=== PATIENT | female | born 1955 | race Caucasian/White ===

== ENCOUNTER 2017-01-19 04:52 | Observation (INO) | payer BC, OTHER ==
--- NOTE | ~2017-01-19 | US67 ---
[facility] A Service of [facility] RADIOLOGY TEXT RESULTS PATIENT: DIAMOND MOLINA LOCATION: [facility] [id number] : 54 UNIT #: [id number] AGE: [address]: Franko Jiménez MD SEX: F ORDER DR: [id number] [facility] [address] [facility]. [place], [place] [address] [id number] I MR#: [id number] #: [id number] NAME: DIAMOND MOLINA : 1955 SEX: F STUDY DATE/TIME: 01/20/2017 10:48 UNIT: [facility] ROOM: [facility] STUDY DESCRIPTION: US Gallbladder Attending Physician: Franko Jiménez M.D. Ordering Physician: Franko Jiménez M.D. Primary Care Physician: Suleiman Jasso M.D. MEDICAL IMAGING REPORT This report is preliminary unless electronic signature is present EXAM Gallbladder ultrasound date: 01/20/2017 HISTORY Abdominal pain for 4 days. Additional history of hypertension, hyperlipidemia. COMPARISON CT abdomen and pelvis with contrast 01/19/2017. FINDINGS Portions of the pancreas obscured by bowel gas, but the visualized portions the pancreas appear unremarkable. The liver demonstrates a mildly diffusely coarsened echotexture suggesting features of mild hepatic steatosis. However, no focal liver lesion is identified. No ascites. Color flow was documented within the intrahepatic segment of the IVC. Portal vein is patent. Liver size is within normal limits. Right kidney measures 11.2 cm in length without focal cortical lesion, shadowing stone or hydronephrosis. Common bile duct caliber is normal, 4 mm, and no intrahepatic biliary ductal dilation is seen. The gallbladder is free of shadowing stone, sludge, wall thickening or pericholecystic fluid. IMPRESSION 1. Normal sonographic appearance of the gallbladder. No biliary dilation. 2. Sonographic features suggestive of mild hepatic steatosis. Dictated by... Jessica Dorantes M.D. THIS IS AN ELECTRONICALLY VERIFIED REPORT [facility] A Service of [facility] RADIOLOGY TEXT RESULTS PATIENT: DIAMOND MOLINA LOCATION: [facility] [id number] : [birth year] UNIT #: [id number] AGE: [address]: Franko Jiménez MD SEX: F ORDER DR: Jessica Dorantes M.D. at 01/22/2017 7:14 AM Radha TD: 01/20/2017 13:21 JOB #: [id number] MEDICAL IMAGING REPORT Page 1 of 1 COPY
--- NOTE | ~2017-01-19 | OR ---
Unit #: [id number] #: [id number] Patient: DIAMOND MOLINA [id number] [address] [address] [id number] I MR#: [id number] NAME: DIAMOND MOLINA ROOM: 573 Date of Procedure: 01/20/2017 Admission Date: 01/19/2017 Surgeon: Chi Finch M.D. : 1955 Attending Physician: Franko Jiménez M.D. Primary Care Physician: Suleiman Jasso M.D. OPERATIVE REPORT PREOPERATIVE DIAGNOSES Epigastric pain radiating to the back along with nausea. PROCEDURES PERFORMED Upper gastrointestinal endoscopy. POSTOPERATIVE DIAGNOSES Completely normal examination except for a few small incidental hyperplastic polyps in the stomach. RECOMMENDATIONS Consider HIDA scan. This can be done as an outpatient or in the morning. In the meantime, the patient can be started on diet as tolerated. SEDATION USED MAC. DESCRIPTION OF PROCEDURE Following detailed explanation of the potential risks and complications of an upper endoscopy, namely perforation, bleeding, and complications related to sedation, the patient was brought to GI lab and laid in the left lateral decubitus position. Lubricated tip of the Olympus video upper endoscope was passed through the bite block into the proximal esophagus under direct vision. The entire esophageal mucosa was examined and appeared normal. Z-line was nicely demarcated, there being no esophagitis or hiatus hernia. The scope was then advanced into the gastric cavity and the latter was insufflated. Mucosa of the fundus, body, and antrum examined and the patient was noted to have few small sessile hyperplastic polyps scattered throughout the stomach. Otherwise, examination was normal. Pylorus was intubated with visualization of the normal duodenal bulb and second and third part of the duodenum. Upon withdrawal and retroflexion, incisura, cardia, and greater curve examined and no additional findings noted. The scope was then withdrawn in the distal esophagus. The entire esophageal mucosa was examined all the way up to pharynx. No additional findings noted. The patient tolerated the procedure without any postprocedure complications. Dictated by... Chi Finch M.D. Unit #: [id number] #: [id number] Patient: DIAMOND MOLINA NNEKA/jose de jesus TD: 02/04/2017 03:11 JOB #: [id number] OPERATIVE REPORT Page 1 of 1 X Chi iFnch MD PROCEDURE OPERATIVE NOTE
--- NOTE | ~2017-01-19 | EKG ---
PATIENT: DIAMOND MOLINA UNIT #: [id number] Ventricular Rate: 69 BPM Atrial Rate: 69 BPM P-R Interval: 156 ms QRS Duration: 116 ms Q-T Interval: 414 ms QTC Calculation(Bezet): 443 ms P [place]: 38 degrees Calculated R [place]: 62 degrees Calculated T [place]: 35 degrees Diagnosis Line: Normal sinus rhythm Diagnosis Line: Right bundle branch block Diagnosis Line: Abnormal ECG Diagnosis Line: When compared with ECG of 19-JAN-2017 08:52, Diagnosis Line: (unconfirmed) Diagnosis Line: No significant change was found Diagnosis Line: Confirmed by KEV LEIGH MD ([id number]) on 01/20/2017 Diagnosis Line: 10:58:40 PM INTERPRETING MD: LU DORMAN
--- NOTE | ~2017-01-19 | EKG ---
PATIENT: DIAMOND MOLINA UNIT #: [id number] Ventricular Rate: 90 BPM Atrial Rate: 90 BPM P-R Interval: 134 ms QRS Duration: 108 ms Q-T Interval: 388 ms QTC Calculation(Bezet): 474 ms P [place]: 84 degrees Calculated R [place]: 86 degrees Calculated T [place]: 54 degrees Diagnosis Line: Normal sinus rhythm Diagnosis Line: Right bundle branch block with repolarization Diagnosis Line: abnormality Diagnosis Line: Abnormal ECG Diagnosis Line: When compared with ECG of 13-MAY-2010 10:05, Diagnosis Line: Vent. rate has increased BY 32 BPM Diagnosis Line: Right bundle branch block is now Present Diagnosis Line: Confirmed by KEN CARR MD ([id number]) on 01/21/2017 Diagnosis Line: 10:20:29 AM INTERPRETING MD: LILLY DORMAN
--- NOTE | ~2017-01-19 | CT2 ---
[facility] A Service of [facility] RADIOLOGY TEXT RESULTS PATIENT: DIAMOND MOLINA LOCATION: [place] [address] : [birth year] UNIT #: [id number] AGE: [address]: Franko Jiménez MD SEX: F ORDER DR: [id number] [address] [address] [id number] E MR#: [id number] Acc #: [id number] NAME: DIAMOND MOLINA : 1955 SEX: F STUDY DATE/TIME: 01/19/2017 6:26 UNIT: SED ROOM: STUDY DESCRIPTION: CT Abd and Pelv W Cont Attending Physician: Seymour Pearce M.D. Ordering Physician: Seymour Pearce M.D. Primary Care Physician: Suleiman Jasso M.D. MEDICAL IMAGING REPORT This report is preliminary unless electronic signature is present. EXAM CT abdomen and pelvis with contrast HISTORY Epigastric pain and chest pain intermittently times 1 day. Prior hysterectomy and appendectomy. COMPARISON: CT abdomen and pelvis 08/08/[address] exam was performed with one or more of the following radiation dose reduction techniques: automatic exposure control, adjustment of mA and/or kV according to patient size, and iterative reconstruction. FINDINGS Axial images performed through the abdomen and pelvis following IV contrast. Multiplanar reconstructed images reviewed at a workstation. Abdomen: Lung bases unremarkable. Liver, spleen and gallbladder appear normal. Pancreas, kidneys and adrenal glands unremarkable. No free air or free fluid. The visualized GI tract appears normal. The retroperitoneum unremarkable except for mild atherosclerotic changes. Pelvis: Bladder normal. Uterus absent. Osseous structures unremarkable. IMPRESSION No acute intraabdominal or intrapelvic pathology identified. Dictated by... Gage Moreno M.D. THIS IS AN ELECTRONICALLY VERIFIED REPORT [facility] A Service of [facility] RADIOLOGY TEXT RESULTS PATIENT: DIAMOND MOLINA LOCATION: [place] [address] : [birth year] UNIT #: [id number] AGE: [address]: Franko Jiménez MD SEX: F ORDER DR: Gage Moreno M.D. at 01/19/2017 3:31 PM VADIM/francisco TD: 01/19/2017 08:29 JOB #: [id number] MEDICAL IMAGING REPORT Page 1 of 1
--- NOTE | ~2017-01-19 | EKG ---
PATIENT: DIAMOND MOLINA UNIT #: [id number] Ventricular Rate: 66 BPM Atrial Rate: 66 BPM P-R Interval: 142 ms QRS Duration: 114 ms Q-T Interval: 462 ms QTC Calculation(Bezet): 484 ms P [place]: 66 degrees Calculated R [place]: 56 degrees Calculated T [place]: 37 degrees Diagnosis Line: Normal sinus rhythm Diagnosis Line: Low voltage QRS Diagnosis Line: Right bundle branch block with repolarization Diagnosis Line: abnormality Diagnosis Line: Abnormal ECG Diagnosis Line: Diagnosis Line: Confirmed by KEN CARR MD ([id number]) on 01/21/2017 Diagnosis Line: 10:20:45 AM INTERPRETING MD: LILLY DORMAN
--- NOTE | ~2017-01-19 | HP ---
Unit #: [id number] #: [id number] Patient: DIAMOND MOLINA [id number] [place] [address] [facility]. [place], [place] [address] [id number] I MR#: [id number] NAME: DIAMOND MOLINA ROOM: 573 Age: 61 Sex: F Admission Date: 01/19/2017 : 1955 Attending Physician: Franko Jiménez M.D. Primary Care Physician: Suleiman Jasso M.D. HISTORY AND PHYSICAL HISTORY OF PRESENT ILLNESS This is a 61-year-old white female with known history of hypertension, hyperlipidemia, reported mitral valve prolapse. Had a normal stress test a few years back. Has had problems with, sounds like, dysphagia, esophageal strictures. Has had several scopes and is a patient of Dr. Darius michel at [facility]. Patient has even had Botox injection for pain. Patient went to the emergency room at [facility] with recurrent pain mostly in her mid epigastric area. She said it radiates through to the back between her shoulder blades. She did have some, besides mid epigastric, it radiated up into the midsternal chest a couple times. She said she has had about 3 episodes over the past 3 days. She said they lasted about 45 minutes to an hour. She gets just real weak and just does not feel well. She denies any acute nausea or vomiting, except she did have some nausea this morning. She denies any palpitations. No dizziness. No shortness of breath. No diaphoresis. She has had no fever or chills or cough. The patient was transferred over here to [facility] for further evaluation and management to evaluate and make sure there was nothing cardiac. Her initial cardiac enzymes were negative. EKG does not show anything acute. PAST MEDICAL HISTORY 1. Last EGD done at [facility] by Dr. Darius Lorenzo on 02/13/2016. Shows nonacid reflux. It was done for dysphagia, abdominal pain. It showed some mildly erythematous mucosa without bleeding in the gastric antrum. On 06/25/2016 she did receive Botox injection during an EGD. 2. Hypertension. 3. Hyperlipidemia. 4. History of mitral valve prolapse. 5. Gastroesophageal reflux disease. 6. Stress test about 5 years ago. According to the patient told it was normal. No cardiac cath in the past. 7. Rheumatoid arthritis, on Enbrel injections. PAST SURGICAL HISTORY 1. EGD and colonoscopies. EGD in the past showed esophagitis, gastric polyps, but her last EGD showed esophagus was normal, but she did have a Botox injection 06/2016 with trigger point injections. 2. Partial hysterectomy. 3. Tubal ligation. 4. Appendectomy. Unit #: [id number] #: [id number] Patient: DIAMOND MOLINA 5. Bilateral knee surgery. 6. Right elbow surgery. HOME MEDICATIONS (I will list them, but there are no dosages) 1. Lisinopril 1 tablet daily. 2. Lovastatin 1 tablet p.o. daily. 3. Prednisone, dosage and frequency unavailable. 4. Enbrel, dosage and frequency unavailable. 5. Carafate, dosage and frequency unavailable. 6. Lotronex, dosage and frequency unavailable. 7. Vitamin D. 8. Vitamin K. 9. Dexilant. ALLERGIES Plaquenil, Arava, celecoxib (Celebrex). SOCIAL HISTORY The patient lives with her . She is retired last year. She used to smoke but quit back in 1987. Has a social alcohol drink but nothing excessive. FAMILY HISTORY Her mother has hypertension. Her father with kidney cancer. REVIEW OF SYSTEMS CONSTITUTIONAL: Denies fevers or chills. No recent weight gain, weight loss. HEENT: Denies headache or dizziness. No visual or hearing changes. No lymphadenopathy, thyromegaly. No difficulty swallowing. CARDIOVASCULAR: Complains of epigastric/midsternal chest pain. Denies paroxysmal nocturnal dyspnea or orthopnea. GI: Had some nausea this morning. No vomiting, diarrhea. Upper abdominal pain. NEUROLOGIC: No focal weakness. PHYSICAL EXAMINATION GENERAL: On exam, Mrs. Molina is a 61-year-old white female. No acute respiratory distress. She is awake, alert and oriented. VITAL SIGNS: Blood pressure is 110/49, heart rate 70, respirations 16, temperature 97.6, O2 sats 100% on room air. NECK: Trachea is midline. No thyromegaly or lymphadenopathy. Normal carotid upstrokes. No jugular venous distention. HEART: S1, S2, regular rate and rhythm. No clicks, murmurs, or rubs. LUNGS: Diminished; otherwise, clear. ABDOMEN: Obese, soft. Tender with palpation, especially left upper quadrant pain. EXTREMITIES: Pedal pulses are palpable. No pedal edema. DIAGNOSTIC STUDIES LABORATORY DIAGNOSTIC DATA: Glucose is 92, BUN 29, creatinine 1.2, eGFR 48.4, sodium 140, potassium 4.2, chloride 105, CO2 27, calcium 9.4, total protein 7.4, albumin 4.4, bili total 0.5, AST 21, ALT 16, alkaline phosphatase 648, amylase 14, lipase 24. INR is 0.9. WBC 7.7, hemoglobin 13.7, hematocrit 41.5, platelets 255. Initial cardiac enzymes - CK-MB less than 1, troponin less than 0.05. Repeat cardiac enzymes - CK-MB 1.4, troponin less than 0.05; CK-MB less than 1, troponin less than 0.05. Unit #: [id number] #: [id number] Patient: DIAMOND MOLINA IMAGING: Chest x-ray - Normal. CT of the abdomen and pelvis shows nothing acute. CARDIOVASCULAR: EKG shows normal sinus rhythm, incomplete right bundle branch block, poor R wave progression, low voltage in inferior leads. IMPRESSION 1. Mid epigastric/upper abdominal/mid sternal pain. 2. Hypertension. 3. Hyperlipidemia. 4. History of esophageal strictures or reflux. History of Botox injection. 5. Rheumatoid arthritis. 6. Borderline right bundle branch block. 7. Reformed smoker. PLAN 1. Patient was sent over here with complaints of midepigastric/midsternal chest pain. Cardiac enzymes, so far, are negative. Will continue to monitor. Her EKG does show borderline right bundle branch block, and that appears to be new looking back on previous EKGs. Will discuss with Dr. Jiménez. If the patient's cardiac enzymes remain negative, will proceed with a stress test tomorrow to further evaluate for ischemic heart disease. 2. On interview and exam with the patient, her symptoms do appear to be more GI in nature. She does have a lot of problems with some type of esophageal stricture or condition in her lower esophagus area. She says she has had Botox last year, and she has been having more dysphagia. Can hardly swallow water, but she is able to eat solid food. She just went to a surgeon that was consulted by Dr. Lorenzo, her GI doctor, and their plans are to have Botox injections in the near future. 3. Patient was not sure that this pain was coming from her esophagus because this seems more severe. 4. Obtain a fasting lipid profile and TSH. 5. Will obtain and two-D echo. The patient has a report of mitral valve prolapse. 6. Will consult Dr. Finch with GI to evaluate to get his recommendations. 7. I will start the patient on Protonix 40 mg IV daily. 8. On exam, there are no signs or symptoms of acute congestive heart failure. 9. Further recommendations pending per Dr. Jiménez. Dictated by Lise Enriquez A.P.R.N. for Fouzia Arana/donna TD: 01/19/2017 15:42 JOB #: [id number] Unit #: [id number] #: [id number] Patient: DIAMOND MOLINA HISTORY AND PHYSICAL Page 1 of 1 X Lise Enriquez APRN HISTORY AND PHYSICAL
--- NOTE | ~2017-01-19 | DS ---
Unit #: [id number] #: [id number] Patient: DIAMOND MOLINA L [id number] [address] [address] [id number] I MR#: [id number] NAME: DIAMOND MOLINA ROOM: 57 Age: 61 Sex: F Admission Date: 01/19/2017 : 1955 Discharge Date: 01/21/2017 Attending Physician: Franko Jiménez M.D. Primary Care Physician: Suleiman Jasso M.D. DISCHARGE SUMMARY DISCHARGE DIAGNOSES 1. Atypical chest pain, ruled out for an acute myocardial infarction. 2. Lexiscan Cardiolite stress test 01/21/2016 which showed no stress-induced ischemia with ejection fraction of 68%. No focal abnormality. Technically limited study secondary to increased gut uptake. 3. 2D echocardiogram 01/20/2017 showed an ejection fraction equal to 65% with right ventricular systolic pressure of 34 mmHg consistent with mild pulmonary hypertension. Mild tricuspid regurgitation. 4. Epigastric pain. 5. Status post esophagogastroduodenoscopy 01/20/[address] Chi Finch that showed a few small incidental hyperplastic polyps in the stomach, otherwise normal. 6. Gastroesophageal reflux disease. 7. Hypertension. 8. Hyperlipidemia. 9. History of esophageal stricture. 10. Former smoker. DISCHARGE MEDICATIONS 1. Prednisone 30 mg daily. 2. Phentermine 37.5 mg, half tablet daily. 3. Climara 0.5 mg transdermal weekly. 4. Lisinopril 20 mg q. h.s. 5. Lotronex 0.5 mg daily. 6. Carafate 1 g t.i.d. 7. Dexilant 60 mg daily. 8. Vitamin D, one tablet daily. 9. Vitamin K, one tablet daily. 10. Lovastatin 20 mg daily. 11. Enbrel 50 mg injected weekly. HOSPITAL COURSE This is a 61-year-old white female who presented to the emergency room with a complaint of chest and epigastric pain. She had no nausea or vomiting or dyspnea. she was ruled out for an acute myocardial infarction where her troponin was negative x3 sets. Lipid profile was obtained which found the patient to have LDL level of 110, a cholesterol level of 229. She had an elevated HDL of 104. She was treated with aspirin, morphine and nitrates in the emergency room. Electrocardiogram showed no acute ischemic changes. The following day, the patient underwent Lexiscan Cardiolite stress test which found her to have no stress-induced ischemia and normal left ventricular systolic function. Echocardiogram showed no significant valvular heart disease and normal EF of 65%. Dr. Chi Ficnh Unit #: [id number] #: [id number] Patient: DIAMOND MOLINA was asked to see the patient because of epigastric pain. She had a history of esophageal stricture. CAT scan of the abdomen and pelvis was normal. Ultrasound of the gallbladder was also normal except there was some mild hepatic steatosis. She reported no weight loss. EGD was planned which was normal except for a small area of hyperplastic polyps in the stomach. She was continued on Dexilant. Today, the patient has no recurrent chest pain or epigastric pain. She has no shortness of breath, palpitations or difficulty with swallowing. She states she feels well. Heart rate and blood pressure are stable. She is stable for discharge today. ASSESSMENT VITAL SIGNS: Blood pressure 122/61, heart rate 80, temperature 98.1. CHEST: Clear to auscultation. HEART: S1, S2 with regular rate and rhythm. ABDOMEN: Soft, with bowel sounds present. Nontender. EXTREMITIES: Without edema. DIAGNOSTIC STUDIES LABORATORY: Cholesterol 229, triglycerides 76, LDL 110, HDL 104, TSH 255. IMAGING: Ultrasound of the gallbladder shows normal sonographic appearance of the gallbladder. No biliary dilatation. There were sonographic features to suggest mild hepatic steatosis. CT of the abdomen and pelvis showed no acute intraabdominal or intrapelvic pathology. CARDIOVASCULAR: Electrocardiogram - normal sinus rhythm, rate of 69 beats/minute with right bundle branch block. Otherwise normal. DISCHARGE INSTRUCTIONS 1. Patient will be discharged today. 2. Follow up with primary care physician in one to two weeks. 3. The patient will have a HIDA scan done as an outpatient because of recent stress test. Dr. Finch's office will call her with the schedule. Follow up with Dr. Finch per his request. Dictated by... Yoseph Klein A.P.R.N. for Fouzia Arana TD: 01/22/2017 10:21 JOB #: [id number] CC: Chi Finch M.D. Unit #: [id number] #: [id number] Patient: DIAMOND MOLINA DISCHARGE SUMMARY Page 1 of 1 X Yoseph Klein APRN DISCHARGE SUMMARY
--- NOTE | ~2017-01-19 | CO ---
Unit #: [id number] #: [id number] Patient: DIAMOND MOLINA [id number] [address] [place], [place] [address] [id number] I MR#: [id number] NAME: DIAMOND MOLINA ROOM: 573 Age: 61 Sex: F Admission Date: 01/19/2017 : 1955 Attending Physician: Franko Jiménez M.D. Primary Care Physician: Suleiman Jasso M.D. Consultation Date: 01/20/2017 CONSULTATION REPORT ATTENDING PHYSICIAN Franko Jiménez M.D. PRIMARY CARE PHYSICIAN Suleiman Jasso M.D. REASON FOR CONSULTATION Noncardiac chest pain and upper abdominal pain. HISTORY OF PRESENT ILLNESS Ms. Molina is a 61-year-old white female, who presents with a history of intermittent episodes of lower sternal and epigastric pain radiating to the back. She has three distinct episodes lasting 2 to 3 hours for the past 3 days. The patient has been admitted under Cardiology and has had normal EKGs and cardiac enzymes. She only occasionally has had episodes of gastroesophageal reflux. There is no history of dyspeptic symptoms and no history of weight loss. PAST MEDICAL HISTORY Significant for hypertension; hyperlipidemia; history of mitral valve prolapse; gastroesophageal reflux; rheumatoid arthritis, on Enbrel. The patient has had upper endoscopy and a colonoscopy in February of last year. PAST SURGICAL HISTORY Included tubal ligation, appendectomy, partial hysterectomy, right elbow and bilateral knee surgeries. HOME MEDICATIONS Included lisinopril, lovastatin, prednisone, Enbrel, Carafate, Lotronex, vitamin D and K, and Dexilant. ALLERGIES Plaquenil, Arava, and Celebrex. SOCIAL HISTORY Lives with the . Having stopped smoking about 20 years ago. She is a social drinker. FAMILY HISTORY Significant for renal cancer in her father and mother had hypertension. REVIEW OF SYSTEMS Detailed review of organ systems does not reveal any recent weight loss. No history of fever, chills, or rigors. No history of headache, seizures, Unit #: [id number] #: [id number] Patient: DIAMOND MOLINA or syncope. No history of cough, expectoration, or hemoptysis. No history of dysuria, hematuria, or pyuria. No history of focal seizures or extremity weakness. Rest of the review of organ systems are unremarkable. PHYSICAL EXAMINATION GENERAL: She is alert and oriented. She appears comfortable. VITAL SIGNS: Stable with a temperature of 98.4, pulse is 80 per minute and regular, respiratory rate is 18, and blood pressure is 122/61. She weighs 172 pounds, which is close to her baseline weight. HEENT: She has no pallor, icterus, lymphadenopathy, or peripheral edema. CARDIOVASCULAR: Normal heart sounds. No murmurs. LUNGS: Auscultation of lungs reveals normal breath sounds. Good air entry. ABDOMEN: Soft and nontender. Liver and spleen are not palpable. Bowel sounds are normal. DIAGNOSTIC STUDIES LABORATORY RESULTS: Shows a normal CBC and serum chemistry shows normal cardiac enzymes with BUN of 26 and creatinine of 1.2. LFTs are normal. The patient has also had a hepatobiliary ultrasound, which is normal. CLINICAL IMPRESSION The differential diagnosis here lies between gastroesophageal reflux and biliary pain. Since the patient has had normal ultrasound, an upper endoscopy will be performed later today. If the latter is normal, an outpatient HIDA scan will be done. The pros and cons of procedure, potential risks, and complications were discussed with the patient and she was reassured. Thank you very much for asking me to see this pleasant woman. I appreciate the consult. Dictated by... Fouzia Brown/jose de jesus TD: 02/08/2017 08:13 JOB #: [id number] CONSULTATION REPORT Page 1 of 1 X Chi Finch MD X CONSULTATION REPORT
--- NOTE | ~2017-01-19 | ST ---
Unit #: [id number] #: [id number] Patient: DIAMOND MOLINA [id number] [address] [address] [id number] I MR#: [id number] NAME: DIAMOND MOLINA : 1955 SEX: F STUDY DATE/TIME: 01/20/2017 UNIT: [facility] ROOM: 573 STUDY DESCRIPTION: Lexiscan stress test Attending Physician: Franko Jiménez M.D. Primary Care Physician: Suleiman Jasso M.D. CARDIOLOGY REPORT PROCEDURE PERFORMED EKG portion of a Lexiscan Cardiolite stress test. REASON FOR EXAM Chest pain/epigastric pain. DISCUSSION Baseline EKG reveals sinus rhythm with a ventricular rate of 70 beats per minute. No acute ST or T wave changes noted. Possible early repolarization. A total of 0.4 mg of Lexiscan was injected per protocol, followed by Cardiolite. There were no complaints of chest pain. There were no sustained arrhythmias noted. There were no ST or T wave changes to suggest ischemia. The test was stopped due to protocol completion. IMPRESSION 1. Negative EKG portion of Lexiscan Cardiolite stress test. 2. There were no complaints of chest pain. 3. There were no sustained arrhythmias noted. 4. There were no ST or T wave changes to suggest ischemia. 5. Please correlate with Cardiolite images. Dictated by... Talita Aviles APRN for Ambreen Rosa M.D. TR/donna TD: 01/20/2017 15:19 JOB #: [id number] CARDIOLOGY REPORT Page 1 of 1 X CARDIOLOGY REPORT
--- NOTE | ~2017-01-19 | EKG ---
PATIENT: DIAMOND MOLINA UNIT #: [id number] Ventricular Rate: 63 BPM Atrial Rate: 63 BPM P-R Interval: 126 ms QRS Duration: 104 ms Q-T Interval: 446 ms QTC Calculation(Bezet): 456 ms P Lincoln: -5 degrees Calculated R Lincoln: 51 degrees Calculated T Lincoln: 39 degrees Diagnosis Line: Normal sinus rhythm Diagnosis Line: Low voltage QRS Diagnosis Line: Incomplete right bundle branch block Diagnosis Line: Otherwise normal ECG Diagnosis Line: When compared with ECG of 19-JAN-2017 04:51, Diagnosis Line: (unconfirmed) Diagnosis Line: No significant change was found Diagnosis Line: Confirmed by KEN CARR MD ([id number]) on 01/21/2017 Diagnosis Line: 10:20:38 AM INTERPRETING MD: LILLY DORMAN
--- NOTE | ~2017-01-19 | TH ---
Unit #: [id number] #: [id number] Patient: DIAMOND MOLINA [id number] [address] [address] [id number] I MR#: [id number] NAME: DIAMOND MOLINA : 1955 SEX: F STUDY DATE/TIME: UNIT: [facility] ROOM: 573 STUDY DESCRIPTION: Lexiscan stress test - Nuclear Attending Physician: Franko Jiménez M.D. Primary Care Physician: Suleiman Jasso M.D. CARDIOLOGY REPORT PROCEDURE PERFORMED Lexiscan Cardiolite stress test - Nuclear portion. PROCEDURE Using technetium 99m-labeled Cardiolite, rest and stress SPECT images were obtained. Multiple SPECT images were obtained in various views, including horizontal and vertical long axis and short axis views of the left ventricle. Images were obtained by gated SPECT method. The patient was administered 11.6 mCi of Cardiolite at rest. The patient was administered 35.1 mCi of Cardiolite after Lexiscan infusion was completed. On the stress images, there is normal perfusion noted. The rest images show normal perfusion. Comparing the rest and stress images, there is no stress-induced ischemia noted. The left ventricular ejection fraction is calculated to be 68%. There is no focal wall motion abnormality seen. CONCLUSION 1. No stress-induced ischemia noted. 2. The left ventricular ejection fraction is calculated to be 68%. 3. There is no focal wall motion abnormality seen. 4. Normal Lexiscan Cardiolite stress test. 5. Technically limited study due to increased gut uptake. Clinical correlation is requested. Dictated by... Fouzia Theodore TD: 01/20/2017 15:08 JOB #: [id number] Unit #: [id number] #: [id number] Patient: DIAMOND MOLINA CARDIOLOGY REPORT Page 1 of 1 X Ambreen Rosa MD <ELECTRONICALLY SIGNED> 03/27/17 1428 CARDIOLOGY REPORT
--- NOTE | ~2017-01-19 | CR72 ---
[facility]. [facility] A Service of [facility] & [facility] RADIOLOGY TEXT RESULTS PATIENT: DIAMOND MOLINA LOCATION: [place] [address] : [birth year] UNIT #: [id number] AGE: [address]: Franko Jiménez MD SEX: F ORDER DR: [id number] [place] [id number] E MR#: [id number] Acc #: [id number] NAME: DIAMOND MOLINA : 1955 SEX: F STUDY DATE/TIME: 01/19/2017 05:27 UNIT: SED ROOM: STUDY DESCRIPTION: CR Chest Single View Portable Attending Physician: Seymour Pearce M.D. Ordering Physician: Seymour Pearce M.D. Primary Care Physician: Suleiman Jasso M.D. MEDICAL IMAGING REPORT This report is preliminary unless electronic signature is present. EXAM Portable chest 01/19/2017 at 0527 INDICATION Chest pain intermittently for 1 day. History of hypertension. COMPARISON 09/29/2011 FINDINGS A single AP portable view of the chest shows both lungs to be clear. The heart is normal in size. The mediastinal contour is normal. No significant bone abnormalities are seen. IMPRESSION Normal portable chest. Dictated by... Rosales Mills Jr., M.D. THIS IS AN ELECTRONICALLY VERIFIED REPORT Rosales Mills Jr., M.D. at 01/20/2017 5:53 AM PATRICK/mikayla TD: 01/19/2017 08:16 JOB #: [id number] MEDICAL IMAGING REPORT Page 1 of 1
[~2017-01-19 04:52] MED LIST: BENTYL10 MG PO; COLACE PO; FIBERCON625 MG PO; FLEXERIL10 MG PO; HORMONE PATCH TOP; HYDROCODONE; LIDOCAINE VISCOUS RC; LISINOPRIL10 MG PO; LORTAB 7.5-5001 TAB PO; METAMUCIL0.52 G PO; MILK OF MAGNESIA PO; MULTI-VITAMIN1 TAB PO; NEXIUM PO; OXYCODONE APAP PO; PHENTERMINE H37.5 M1 PO; PROMETHAZINE; VICODIN 5/1 TAB 5/50 PO; VIT E PO; VITAMIN C OTC; VITAMIN E OTC; VIVELLE1 PATCH.B1 TD; VOLTAREN75 MG PO; ZANTAC; ZYRTEC PO
[2017-01-19] MEDS ORDERED: PREDNISONE PO (04:59)
[2017-01-19] MEDS ORDERED: LOVASTATIN PO (04:59)
[2017-01-19] MEDS ORDERED: ENBREL INJ (05:00)
[2017-01-19 05:15] LABS: BASOPHIL# 0.1 X10e3 (0-0.3); BASOPHIL% 1.3 % (0-2.5); EOSINOPHIL# 0.2 X10e3 (0-0.7); EOSINOPHIL% 2.6 % (0.0-7.0); HEMATOCRIT 41.5 % (35.0-45.0); HEMOGLOBIN 13.7 gm/dL (12.0-16.0); LYMPHOCYTE# 3.4 X10e3 (1.0-3.5); LYMPHOCYTE% 44.4 % (17.0-45.0); MEAN CELL VOLUME 90.7 FL (83-96); MEAN CORPUSCULAR HEMOGLOBIN 29.9 PG (28-34); MEAN CORPUSCULAR HGB CONC 32.9 g/dL (30-36); MEAN PLATELET VOLUME 9.2 FL (6.5-11.5); MONOCYTE# 0.9 X10e3 (0-1.0); MONOCYTE% 11.1 % (3.0-12.0); NEUTROPHIL# 3.1 X10e3 (1.5-7.1); NEUTROPHIL% 40.6 % (40-75); PLATELET COUNT 255 X10e3 (140-420); RED BLOOD COUNT 4.57 X10e (3.90-5.30); RED CELL DISTRIBUTION WIDTH 14.1 % (11.0-15.5); WHITE BLOOD COUNT 7.7 X10e3 (4.0-10.5)
[2017-01-19 05:17] LABS: INR 0.9; PROTHROMBIN TIME (PATIENT) 9.7 SECONDS (9.5-12.4)
[2017-01-19 05:23] LABS: POC - CKMB 1.4 ng/mL (0.0-7.9); POC - TROPONIN <0.05 ng/mL (<=0.05)
[2017-01-19 05:24] LABS: PARTIAL THROMBOPLASTIN TIME 24.1 SECONDS (25.6-38.1)
[2017-01-19 05:25] LABS: DIFF IND NO
[2017-01-19 05:27] LABS: ALBUMIN SERUM 4.4 g/dL (3.5-5.0); BILIRUBIN, DIRECT 0.1 mg/dL (0.0-0.2); BILIRUBIN,INDIRECT 0.4 mg/dL (0.0-0.9); BILIRUBIN,TOTAL 0.5 mg/dL (0.2-2.0); BUN/CREATININE RATIO 24.16; CALCIUM SERUM 9.4 mg/dL (8.4-10.2); CREATININE SERUM 1.2 mg/dL (0.6-1.4); GLOM FILT RATE Estimated 48.4 mL/min (>60); POTASSIUM 4.2 mmol/L (3.5-5.1); PROTEIN TOTAL SERUM 7.4 g/dL (6.0-8.3)
[2017-01-19 07:19] LABS: POC - CKMB <1.0 ng/mL (0.0-7.9); POC - TROPONIN <0.05 ng/mL (<=0.05)
[2017-01-19 09:39] LABS: POC - CKMB <1.0 ng/mL (0.0-7.9); POC - TROPONIN <0.05 ng/mL (<=0.05)
[2017-01-19] MEDS ORDERED: CARAFATE PO (13:27)
[2017-01-19] MEDS ORDERED: VITAMIN D2000 UNIT (13:28)
[2017-01-19] MEDS ORDERED: LOTRONEX1 MG PO (13:28)
[2017-01-19] MEDS ORDERED: VITAMIN K100 MCG (13:29)
[2017-01-19] MEDS ORDERED: DEXILANT30 MG PO (13:32)
[2017-01-19] MEDS ORDERED: PHENTERMINE PO (14:47)
[2017-01-19] MEDS ORDERED: VITAMIN K100 MCG PO (14:52)
[2017-01-19] MEDS ORDERED: CLIMARA 0.050.05 MG EXT (14:53)
[2017-01-19] MEDS ORDERED: VITAMIN D2000 UNIT PO (14:53)
[2017-01-19] MEDS ORDERED: VOLTAREN100 GM TOP (14:54)
[2017-01-19 16:16] LABS: CK TOTAL 53 IU/L (26-140)
[2017-01-19 21:58] LABS: CK TOTAL 51 IU/L (26-140)
[2017-01-20 08:57] LABS: CHOLESTEROL 229 mg/dL (0-200); HDL CHOLESTEROL 104 mg/dL (35-95); LDL CHOLESTEROL 110 mg/dL (-130); LDL/HDL RATIO 1 RATIO (0-4); TRIGLYCERIDES 76 mg/dL (10-160)
== END 2017-01-21 13:30 | disposition home or self-care (01) | DRG 313 ==
LOC: SED 04:52 → CEDOF 08:13 → C5C 08:13
PROVIDERS: Emergency Medicine; Nurse Practitioner
DX: R07.89 Other chest pain (principal); I07.1 Rheumatic tricuspid insufficiency; R10.13 Epigastric pain; K31.7 Polyp of stomach and duodenum; K21.9 Gastro-esophageal reflux disease without esophagitis; I10 Essential (primary) hypertension; E78.5 Hyperlipidemia, unspecified; M06.9 Rheumatoid arthritis, unspecified; Z87.891 Personal history of nicotine dependence; Z82.49 Family history of ischemic heart disease and other diseases of the circulatory system; Z80.51 Family history of malignant neoplasm of kidney
CPT/HCPCS: 36415; 71010; 74177; 76705; 78452; 80048; 80061; 80076; 82150; 82550; 82553; 83690; 84443; 84484; 85025; 85610; 85730; 87077; 88305; 88312; 93005; 93017; 93306; 96361; 96372; 96374; 96375; 96376; 99285; A9500; C9113; G0378; J1170; J1650; J2270; J2405; J2785; Q9967

== ENCOUNTER → 2017-05-25 | Outpatient (CLI) | payer BC, OTHER ==
[~2017-05-25] MED LIST changes: +CARAFATE PO; +CLIMARA 0.050.05 MG EXT; +DEXILANT30 MG PO; +ENBREL INJ; +LOTRONEX1 MG PO; +LOVASTATIN PO; +PHENTERMINE PO; +PREDNISONE PO; +VITAMIN D2000 UNIT; +VITAMIN D2000 UNIT PO; +VITAMIN K100 MCG; +VITAMIN K100 MCG PO; +VOLTAREN100 GM TOP
--- NOTE | ~2017-05-25 | BD1 ---
[facility] A Service of [facility] & [facility] RADIOLOGY TEXT RESULTS PATIENT: DIAMOND MOLINA LOCATION: [facility] : 53 UNIT #: [id number] AGE: [address]: Suleiman Jasso MD SEX: F ORDER DR: [id number] [address] [address] [id number] O MR#: [id number] Acc #: [id number] NAME: DIAMOND MOLINA : 1955 SEX: F STUDY DATE/TIME: 05/25/2017 10:10 UNIT: [facility] ROOM: STUDY DESCRIPTION: BD Dexa Bone Dens 1+ Site Attending Physician: Suleiman Jasso M.D. Referring Physician: Suleiman Jasso M.D. Ordering Physician: Suleiman Jasso M.D. Primary Care Physician: Suleiman Jasso M.D. MEDICAL IMAGING REPORT This report is preliminary unless electronic signature is present. EXAM DEXA scan. HISTORY Postmenopausal screening for osteoporosis. COMPARISON None. FINDINGS Total bone density in the lumbar spine was calculated at 1.043 g/cm2 with a T-score of 0. Bone density within the proximal left femoral neck was calculated at 0.955 g/cm2 with a T-score of -0.6. Bone density in the right femoral neck was calculated 1.024 g/cm2 with a T-score of -0.1. IMPRESSION Bone density within the lumbar spine and proximal femurs is within 1 standard deviation of the mean and is normal according to World Health Organization criteria. Dictated by... Gage Moreno M.D. THIS IS AN ELECTRONICALLY VERIFIED REPORT Gage Moreno M.D. at 05/26/2017 4:46 PM VADIM/yemi TD: 05/25/2017 16:48 JOB #: [id number] MEDICAL IMAGING REPORT Page 1 of 1
--- NOTE | ~2017-05-25 | US77 ---
[facility] A Service of [facility] & [facility] RADIOLOGY TEXT RESULTS PATIENT: DIAMOND MOLINA LOCATION: [facility] [[email or web address] : 53 UNIT #: [id number] AGE: [address]: Suleiman Jasso MD SEX: F ORDER DR: [id number] [address] [address] [id number] O MR#: [id number] Acc #: [id number] NAME: DIAMOND MOLINA : 1955 SEX: F STUDY DATE/TIME: 05/25/2017 9:48 UNIT: [facility] [[email or web address] ROOM: STUDY DESCRIPTION: US Kidney Bilateral Complete Attending Physician: Suleiman Jasso M.D. Referring Physician: Suleiman Jasso M.D. Ordering Physician: Suleiman Jasso M.D. Primary Care Physician: Suleiman Jasso M.D. MEDICAL IMAGING REPORT This report is preliminary unless electronic signature is present. EXAM Bilateral renal ultrasound 05/25/2017 HISTORY Back pain for 1 year. Acute lower back pain. COMPARISON CT abdomen and pelvis with contrast 01/19/2017. FINDINGS The right kidney measures 10.8 x 5 x 5.3 cm. The left kidney measures 8.7 x 5.2 x 4.5 cm. Each kidney demonstrates mild cortical thinning. However, normal renal echotexture is maintained. No shadowing stone or hydronephrosis is seen on either side. No cystic or solid renal mass is seen on either side. Urinary bladder is normal, and bilateral ureteral jets are demonstrated. IMPRESSION 1. Mild bilateral renal cortical thinning. Otherwise, normal bilateral renal ultrasound. 2. Normal sonographic appearance of the urinary bladder. Dictated by... Jessica Dorantes M.D. THIS IS AN ELECTRONICALLY VERIFIED REPORT Jessica Dorantes M.D. at 05/26/2017 8:54 AM SHITAL/david TD: 05/25/2017 19:38 JOB #: [id number] [facility] A Service of [facility] RADIOLOGY TEXT RESULTS PATIENT: DIAMOND MOLINA LOCATION: [facility] #: [id number] : 53 UNIT #: [id number] AGE: [address]: Suleiman Jasso MD SEX: F ORDER DR: MEDICAL IMAGING REPORT Page 1 of 1
== END | disposition home or self-care (01) ==
LOC: SGUS 09:37
DX: Z13.820 Encounter for screening for osteoporosis (principal); N28.89 Other specified disorders of kidney and ureter; Z78.0 Asymptomatic menopausal state
CPT/HCPCS: 76775; 77080